=== PATIENT | male | born 2000 | race Two or more races ===

== ENCOUNTER 2020-11-01 21:25 | Emergency (ER) | payer MEDICAID, OTHER, SELFPAY ==
[~2020-11-01] VITALS: Ht 190.5 cm; Wt 130.3 kg
--- NOTE | 2020-11-01 21:52 | NUR ---
ASSUMED CARE OF PATIENT. PATIENT C/O LUQ ABD PAIN WITH NAUSEA. VS STABLE. NO ACUTE DISTRESS NOTED. FAMILY AT BEDSIDE. WILL CONTINUE TO MONITOR.
[2020-11-01] MEDS ORDERED: ONDANSETRON 2MG/ML, 2ML ONE (22:48)
--- NOTE | 2020-11-01 22:51 | NUR ---
PT SEEN BY TATYANA RIZVI. VS STABLE. FAMILY IN ROOM. LAB IN ROOM. NO ACUTE DISTRESS NOTED. WILL CONTINUE TO MONITOR.
[2020-11-01 23:00] LABS: BASOPHILS % (AUTO) 0 % (0-1); EOSINOPHILS % (AUTO) 2 % (1-7); LYMPHOCYTES % (AUTO) 31 % (22-44); MEAN CORPUSCULAR HEMOGLOBIN 27.1 pg (27.5-34.5); MEAN CORPUSCULAR HGB CONC 33.8 g/dL (33.2-36.2); MEAN PLATELET VOLUME 8.2 fL (7.4-10.4); MONOCYTES % (AUTO) 7 % (2-9); NEUTROPHILS % (AUTO) 59 % (42-75); PLATELET COUNT 283 x10^3/uL (130-400); RED CELL DISTRIBUTION WIDTH 14.7 % (9.4-14.8)
[2020-11-01] MEDS ORDERED: ONDANSETRON 2MG/ML, 2ML IVPush ONE (23:00)
[2020-11-01] MEDS ORDERED: SODIUM CHLORIDE 0.9% 1,000ML IVBOLUS ONE (23:00)
[2020-11-01 23:09] LABS: ALANINE AMINOTRANSFERASE 33 U/L (12-78); ALBUMIN 4.1 g/dL (3.4-5.0); ANION GAP 7 mmol/L (5-15); CHLORIDE 107 mmol/L (98-107); CREATININE 0.93 mg/dL (0.7-1.3)
[2020-11-01 23:11] LABS: ALKALINE PHOSPHATASE 82 U/L (45-117); BILIRUBIN,TOTAL 0.6 mg/dL (0.2-1.0); TOTAL PROTEIN 7.6 g/dL (6.4-8.2)
[2020-11-01 23:21] LABS: MD SCAN
[2020-11-01] MEDS ORDERED: OMNIPAQUE 350 MG/ML, 100ML BOTTLE ONE (23:31)
--- NOTE | 2020-11-01 23:33 | NUR ---
PT BACK FROM CT. VS STABLE. NO ACUTE DISTRESS NOTED. CALL LIGHT IN PLACE. WILL CONTINUE TO MONITOR.
--- NOTE | 2020-11-02 00:14 | NUR ---
UA SENT. PT RESTING IN ROOM. NO ACUTE DISTRESS NOTED. CALL LIGHT IN PLACE WILL CONTINUE TO MONITOR.
[2020-11-02 00:16] LABS: MICROSCOPIC NOT IND
[2020-11-02 00:38] VITALS: BP 111/59
== END 2020-11-02 00:40 | disposition home or self-care (01) ==
LOC: ED 11-02 00:34
DX: K52.9 Noninfective gastroenteritis and colitis, unspecified (principal); R10.12 Left upper quadrant pain; D72.829 Elevated white blood cell count, unspecified; R11.2 Nausea with vomiting, unspecified
CPT/HCPCS: 36415; 74177; 80053; 81003; 83690; 85025; 96361; 96374; 99285; J2405; J7030; Q9967

== ENCOUNTER 2020-11-30 19:44 | Emergency (ER) | payer SELFPAY ==
[~2020-11-30] VITALS: Ht 188 cm; Wt 132.0 kg
--- NOTE | 2020-11-30 20:33 | NUR ---
piv attempt x2 failed. blood was able to be drawn
[2020-11-30 20:58] LABS: ALANINE AMINOTRANSFERASE 30 U/L (12-78); ALBUMIN 4.2 g/dL (3.4-5.0); ANION GAP 6 mmol/L (5-15); CALCIUM 9.3 mg/dL (8.5-10.1); CHLORIDE 106 mmol/L (98-107); CREATININE 0.94 mg/dL (0.7-1.3)
[2020-11-30] MEDS ORDERED: ONDANSETRON 2MG/ML, 2ML IVPush ONE (21:00)
[2020-11-30] MEDS ORDERED: MORPHINE SULFATE 4 MG/ML, 1ML IVPush PRN (21:00)
[2020-11-30] MEDS ORDERED: SODIUM CHLORIDE FLUSH 10ML SYR IVF ONE (21:00)
[2020-11-30] MEDS ORDERED: SODIUM CHLORIDE 0.9% 1,000ML IVBOLUS ONE (21:00)
[2020-11-30 21:01] LABS: ALKALINE PHOSPHATASE 86 U/L (45-117); BILIRUBIN,TOTAL 0.2 mg/dL (0.2-1.0); TOTAL PROTEIN 8.2 g/dL (6.4-8.2)
[2020-11-30] MEDS ORDERED: ONDANSETRON 2MG/ML, 2ML ONE (21:07)
--- NOTE | 2020-11-30 21:13 | NUR ---
PIV PLACEDM, FLUIDS AND ZOFRAN ADMIN. PT DENIES PAIN AT THIS TIME, STATES MORE ABDOMENAL PRESSURE
[2020-11-30 21:14] VITALS: BP 115/66
[2020-11-30 21:24] LABS: BASOPHILS % (AUTO) 1 % (0-1); EOSINOPHILS % (AUTO) 3 % (1-7); LYMPHOCYTES % (AUTO) 23 % (22-44); MD NO; MEAN CORPUSCULAR HEMOGLOBIN 26.6 pg (27.5-34.5); MEAN CORPUSCULAR HGB CONC 32.7 g/dL (33.2-36.2); MEAN PLATELET VOLUME 8.2 fL (7.4-10.4); MONOCYTES % (AUTO) 7 % (2-9); NEUTROPHILS % (AUTO) 67 % (42-75); PLATELET COUNT 302 x10^3/uL (130-400); RED BLOOD COUNT 5.75 x10^6/uL (4.38-5.82); RED CELL DISTRIBUTION WIDTH 14.6 % (9.4-14.8)
[2020-11-30 21:30] LABS: MICROSCOPIC NOT IND
[2020-11-30] MEDS ORDERED: OMNIPAQUE 350 MG/ML, 150 ML BOTTLE ONE (21:40)
--- NOTE | 2020-12-01 07:54 | NUR ---
COVID SWAB FROM 11/30/20 NOT IN THE LAB. ATTEMPT TO CALL PT TO NOTIFY PT AND FOR HIM TO RETURN IF HE WOULD LIKE TO BE SWABBED AGAIN. MESSAGE LEFT TO RETURN CALL.
== END 2020-11-30 22:18 | disposition home or self-care (01) ==
LOC: ED 22:15
DX: K64.8 Other hemorrhoids (principal); B34.9 Viral infection, unspecified; R19.7 Diarrhea, unspecified; R10.84 Generalized abdominal pain; R11.2 Nausea with vomiting, unspecified; R05 Cough
CPT/HCPCS: 71045; 74177; 80053; 81003; 83690; 85025; 96361; 96374; 99285; J2405; J7030; Q9967